=== PATIENT | female | born 1985 | race Two or more races ===

== ENCOUNTER → 2018-03-03 | Outpatient (CLI) | payer SELFPAY ==
--- NOTE | 2018-03-03 15:13 | RADIOLOGY REPORT (SQ) ---
EXAM DESCRIPTION: U/S [id number] TRNABD 1GES W/ODOP COMPLETED DATE/TIME: 03/03/2018 1:33 pm REASON FOR STUDY: ENCOUNTER FOR SUPERVISION OF OTHER NORMAL , FIRST TRIMESTER Z34.81 ENCOU NTER FOR SUPRVSN OF NORMAL , FIRST TRIM COMPARISON: None. TECHNIQUE: Transabdominal static and realtime grayscale images acquired of the pelvis. Additional se lected spectral and color Doppler images recorded. All images stored on PACs. bHCG: Not available. CLINICAL DATES: Not Available. LIMITATIONS: None. FINDINGS: FETUS: ULTRASOUND EGA: 11 week. ULTRASOUND GHULAM: 09/22/2018. CRL: 4.07 cm. EFW: Not applicable. FHR: 168 beats per minute. MADALYN: Adequate amount. CERVICAL LENGTH: 3.2 cm. Closed. UTERUS: No masses. RIGHT ADNEXA: Normal ovary with normal vascular flow. No adnexal free fluid. No adnexal masses. LEFT ADNEXA: Normal ovary with normal vascular flow. No adnexal free fluid. No adnexal masses. FREE FLUID: None. OTHER: No other significant finding. IMPRESSION: LIVING INTRAUTERINE . ESTIMATED GESTATIONAL AGE:11 WEEK. Trimester of : First trimester - 0 to 13 weeks. TECHNICAL DOCUMENTATION: JOB ID: [id number] [employer]- All Rights Reserved rev-12/30 Reading location - IP/workstation name: [email or web address]
== END ==
LOC: RAD 13:00
PROVIDERS: ATTEND Nurse Practitioner Women's Health
DX: Z34.81 Encounter for supervision of other normal pregnancy, first trimester (principal)
CPT/HCPCS: 76801

== ENCOUNTER → 2018-05-15 | Outpatient (CLI) | payer SELFPAY ==
--- NOTE | 2018-05-15 16:22 | RADIOLOGY REPORT (SQ) ---
EXAM DESCRIPTION: U/S OB 14+ TRNABD 1GES W/O DOP COMPLETED DATE/TIME: 05/15/2018 2:45 pm REASON FOR STUDY: Z34.82 ENCOUNTER FOR SUPRVSN OF NORMAL , SECOND TRIMESTER Z34.82 ENCOUNT ER FOR SUPRVSN OF NORMAL , SECOND TRI COMPARISON: 03/03/2018 TECHNIQUE: Static and Dynamic grayscale imaging performed of gravid uterus using transabdominal appr oach. Additional selected color Doppler and spectral images recorded. All stored on PACS. LIMITATIONS: None. FINDINGS: FETUSES SEEN:1 EGA: 21 weeks 5 days Calculated using BPD,FL,HC,AC documented on images. No discrepancy with clinica l dates. GHULAM: 09/20/2017 EFW: 448 grams PERCENTILE: Not calculated. MADALYN: 4.1 PLACENTA: Posterior. GRADE: I PRESENTATION: Cephalic. ANATOMY: HEART RATE: 152 beats per minute. FOUR CHAMBER HEART: Visualized. THREE VESSEL CORD: Yes. CORD INSERTION: Visualized. KIDNEYS AND BLADDER: Visualized. Appear normal. STOMACH: Visualized. Appears normal. SPINE: Normal as visualized. BRAIN AND LATERAL VENTRICLES: Visualized. Appear normal. OTHER: No other significant finding. MATERNAL ADNEXA: Maternal ovaries not visualized. CERVICAL LENGTH: 4.2 cm Closed. OTHER: No other significant finding. IMPRESSION: LIVING INTRAUTERINE . ESTIMATED GESTATIONAL AGE 21 weeks 5 days NO VISUALIZED ANOMALIES. Trimester of : Second trimester - 13 weeks 1 day to 27 weeks 6 days. TECHNICAL DOCUMENTATION: JOB ID: [id number] [employer]- All Rights Reserved Reading location - IP/workstation name: [email or web address]
== END ==
LOC: RAD 16:37
PROVIDERS: ATTEND Nurse Practitioner
DX: Z34.82 Encounter for supervision of other normal pregnancy, second trimester (principal)
CPT/HCPCS: 76805

== ENCOUNTER 2018-09-07 17:27 | Outpatient (CLI) | payer SELFPAY ==
--- NOTE | 2018-09-07 18:42 | RADIOLOGY REPORT (SQ) ---
EXAM DESCRIPTION: U/S OB LIMITED COMPLETED DATE/TIME: 09/07/2018 6:30 pm REASON FOR STUDY: MADALYN non reactive NST gestation of 38 weeks 1 day COMPARISON: 05/15/2018 TECHNIQUE: Limited transabdominal grayscale ultrasound for evaluation of specific requested obstetri daisy parameters. LIMITATIONS: None. FINDINGS: CERVICAL LENGTH: Not applicable. Greater than 20 weeks. Need transvaginal study if indicat ed. Closed. MADALYN: 14.7 cm. FHR: 144 beats per minute. PRESENTATION: Cephalic. PLACENTA: Posterior. ANATOMY: Not assessed OTHER: No other significant findings. IMPRESSION: LIMITED OBSTETRICAL ULTRASOUND WITH MEASURED PARAMETERS DELINEATED ABOVE. Trimester of : Third trimester - 28 weeks to delivery. TECHNICAL DOCUMENTATION: JOB ID: [id number] [employer]- All Rights Reserved Reading location - IP/workstation name: [email or web address]
--- NOTE | 2018-09-07 18:57 | Non Stress Test Report ---
Non Stress Test Datetime Report Generated by CPN: 09/07/2018 18:57 INDICATION Indication for Study: Other Indication for Study (NST) Other: ordered by provider VITAL SIGNS Temperature - NST: 98.6 RESP - NST: 18 MONITORING Monitor Explained: Monitor Explained; Test Explained; Patient Verbalized Understanding Time on Monitor: 09/07/2018 18:28 Time off Monitor: 09/07/2018 18:49 NST Duration: 21 NST INTERVENTIONS NST Interventions: None Physician Notified NST: Dr Ramirez BABY A: [id number] BABY A Movement : Present Contraction Frequency : irritability FHR Baseline : 130 Accelerations : 15X15 Decelerations : None Variability : Moderate 6-25bpm NST Review: Meets Criteria for Reactive NST NST Review and Verified By : Yakelin Tineo RN NST Results: Reactive NST REPORT Report Trigger: Send Report
== END 2018-09-07 19:10 | disposition home or self-care (01) ==
LOC: LC 17:27
PROVIDERS: ATTEND Obstetrics & Gynecology Gynecology
PROC: 4A1HXCZ Monitoring of Products of Conception, Cardiac Rate, External Approach (ICD-10-PCS; principal; 2018-09-07)
DX: Z34.93 Encounter for supervision of normal pregnancy, unspecified, third trimester (principal)
CPT/HCPCS: 59025; 76815

== ENCOUNTER 2018-09-19 02:35 | Inpatient (IN) | payer SELFPAY ==
[2018-09-19 03:13] LABS: APPEARANCE,URINE CLOUDY; BILIRUBIN,URINE NEGATIVE (NEGATIVE); GLUCOSE, URINE NEGATIVE (NEGATIVE); KETONES,URINE NEGATIVE (NEGATIVE); LEUKOCYTE ESTERASE,URINE TRACE (NEGATIVE); NITRITE,URINE NEGATIVE (NEGATIVE); PROTEIN,URINE NEGATIVE (NEGATIVE); URINE SPECIFIC GRAVITY 1.019
[2018-09-19 03:17] LABS: COLOR,URINE DARK YELLOW
[2018-09-19 03:33] LABS: URINE AMPHETAMINES SCREEN NEGATIVE; URINE BARBITURATES SCREEN NEGATIVE; URINE BENZODIAZEPINES SCREEN NEGATIVE; URINE COCAINE SCREEN NEGATIVE; URINE MARIJUANA (THC) SCREEN NEGATIVE; URINE METHADONE SCREEN NEGATIVE; URINE PHENCYCLIDINE SCREEN NEGATIVE
[2018-09-19] MEDS ORDERED: MISOPROSTOL 0.2 MG TABLET ONE (03:37)
[2018-09-19] MEDS ORDERED: OXYTOCIN/NORMAL SALINE 20 UNIT/1,000 ML RTUINJ ONE (03:37)
[2018-09-19] MEDS ORDERED: OXYTOCIN 10 UNIT/ML VIAL ONE (03:37)
[2018-09-19] MEDS ORDERED: LIDOCAINE 1% INJ-PF (10 MG/ML) 30 ML SDV ONE (03:37)
[2018-09-19] MEDS ORDERED: RINGERS SOLUTION,LACTATED 1,000 ML IV PRN (03:52)
[2018-09-19] MEDS ORDERED: RINGERS SOLUTION,LACTATED 1,000 ML IV ONE (03:52)
[2018-09-19 04:15] LABS: ABSOLUTE EOSINOPHILS # (AUTO) 0.1 10^3/uL (0.0-0.6); ABSOLUTE LYMPHOCYTES (AUTO) 2.2 10^3/uL (0.5-4.7); ABSOLUTE MONOCYTES (AUTO) 0.6 10^3/uL (0.1-1.4); ABSOLUTE NEUT (AUTO) 4.8 10^3/uL (1.7-8.2); BASOPHILS % (AUTO) 0.3 % (0-2); EOSINOPHILS % (AUTO) 0.9 % (0-6); HEMATOCRIT 34.8 % (36.0-47.0); LYMPHOCYTES % (AUTO) 28.9 % (13-45); MEAN CORPUSCULAR HEMOGLOBIN 30.7 pg (27.0-33.4); MEAN CORPUSCULAR HGB CONC 34.6 g/dL (32.0-36.0); MEAN CORPUSCULAR VOLUME 89 fl (80-97); MONOCYTES % (AUTO) 7.5 % (3-13); PLATELET COUNT 264 10^3/uL (150-450); RED BLOOD COUNT 3.92 10^6/uL (3.72-5.28); RED CELL DISTRIBUTION WIDTH 14.2 % (11.5-14.0); SEGMENTED NEUTROPHILS % (AUTO) 62.4 % (42-78); TOTAL CELLS COUNTED % (AUTO) 100 %; WHITE BLOOD COUNT 7.8 10^3/uL (4.0-10.5)
--- NOTE | 2018-09-19 06:34 | Admission Physical ---
Datetime Report Generated by CPN: 09/19/2018 06:33 CURRENT ADMISSION Chief Complaint: Uterine Contractions Indication for Induction: Not Applicable Admit Impression : Term, Intrauterine ; Active Labor Admit Plan: Admit to Unit ALLERGIES Medication Allergies: No Medication Allergies: No Known Allergies (09/19/2018) Latex: No Latex Allergies Food Allergies: No known allergies Environmental Allergies: No known allergies OBSTETRICAL HISTORY EDC: 09/20/2018 00:00 : 3 Para: 2 Term: 2 : 0 SAB: 0 IAB: 0 Ectopic: 0 Livin Cesareans: 0 VBACs: 0 Multiple Births: 0 Gestational Diabetes: No Rh Sensitization: No Incompetent Cervix: No WALDO: No Infertility: No ART Treatment: No Uterine Anomaly: No IUGR: No Hx Previous C/S: No Macrosomia: No Hx Loss/Stillborn: No PIH: No Hx : No Placenta Previa/Abruption: No Depression/PP Depression: No PTL/PROM: No Post Hemorrhage: No Current Procedures: Ultrasound; NST Obstetrical History Comments: G1 - 2006 @ 40 weeks, viable baby boy G2 - 2008 @ 40 weeks, viable baby girl G3 - Current SEE RECORDS Alcohol: No Marijuana : No Cocaine: No Other Illicit Drugs: No Cigarettes: Never Smoker. [id number] MEDICAL HISTORY Diabetes: No Blood Transfusion: No Pulmonary Disease (Asthma, TB): No Breast Disease: No Hypertension: No [employer] Surgery: No Heart Disease: No Hosp/Surgery: Yes Autoimmune Disorder: No Anesthetic Complications: No Kidney Disease: No Abnormal Pap Smear: No Neuro/Epilepsy: No Psychiatric Disorders: No Other Medical Diseases: No Hepatitis/Liver Disease: No Significant Family History: No Varicosities/Phlebitis: No Trauma/Violence : No Thyroid Dysfunction: No Medical History Comments: childbirth x 2 INFECTIOUS HISTORY Gonorrhea: No Genital Herpes: No Chlamydia: No Tuberculosis: No Syphilis: No Hepatitis: No HIV/AIDS Exposure: No Rash or Viral Illness: No HPV: No PHYSICAL EXAM General: Normal HEENT: Normal Neurologic: Normal Thyroid: Normal Heart: Normal Lungs: Normal Breast: Normal Back: Normal Abdomen: Normal Genitourinary Exam: Normal Extremities: Normal DTRs: Normal Pelvic Type: Adequate Vital Signs: Reviewed VAGINAL EXAM Dilatation: 8 Effacement: 90 Station: -1 MEMBRANES Pooling: Positive Membranes: Ruptured Amniotic Fluid Color: Bloody FETUS A EGA: 39.6 Monitoring: External US FHR- Baseline: 130 Variability: Moderate 6-25bpm Accelerations: 15X15 Decelerations: None FHR Category: Category I Estimated Weight (gm): 3500 Presentation: Vertex PLANS FOR LABOR AND DELIVERY Labor and Delivery: None Pain Management: Medications Feeding Preference: Breast Benefit of Breast Feed Discussed: Yes Circumcision: N/A INFORMED CONSENT Signature: with User ID: [email or web address]
[2018-09-19] MEDS ORDERED: MAGNESIUM HYDROXIDE SUSP 30 ML UDCUP PO PRN (07:14)
[2018-09-19] MEDS ORDERED: DIPH/PERTUSS(ACELL)/TETANUS VAC/PF 0.5 ML SYR (>=10YO) IM PRN (07:14)
[2018-09-19] MEDS ORDERED: MEASLES,MUMPS&RUBELLA VACC/PF 0.5 ML VIAL SUBCUT PRN (07:14)
[2018-09-19] MEDS ORDERED: DIPHENHYDRAMINE HCL 25 MG CAPSULE PO PRN (07:14)
[2018-09-19] MEDS ORDERED: ACETAMINOPHEN WITH CODEINE #3 TABLET PO PRN ×2 (07:14)
[2018-09-19] MEDS ORDERED: PROMETHAZINE HCL 25 MG TABLET PO PRN (07:14)
[2018-09-19] MEDS ORDERED: PROMETHAZINE HCL 25 MG SUPP.RECT PR PRN (07:14)
[2018-09-19] MEDS ORDERED: OXYTOCIN/NORMAL SALINE 20 UNIT/1,000 ML RTUINJ IV PRN (07:14)
[2018-09-19] MEDS ORDERED: ACETAMINOPHEN 650 MG SUPP.RECT PR PRN (07:14)
[2018-09-19] MEDS ORDERED: NA PHOS,M-B/NA PHOS,DI-BA (ADULT) 133 ML ENEMA PR PRN (07:14)
[2018-09-19] MEDS ORDERED: ZOLPIDEM TARTRATE 5 MG TABLET PO PRN (07:14)
[2018-09-19] MEDS ORDERED: DIBUCAINE 1% OINTMENT 28 GM TP PRN (07:14)
[2018-09-19] MEDS ORDERED: BENZOCAINE/MENTHOL AEROSOL SPRAY 56 ML TOP PRN (07:14)
[2018-09-19] MEDS ORDERED: GLYCERIN/WITCH HAZEL LEAF 1 EACH MED..PAD TP PRN (07:14)
[2018-09-19] MEDS ORDERED: PSEUDOEPHEDRINE HCL 30 MG TABLET PO PRN (07:14)
[2018-09-19] MEDS ORDERED: PROMETHAZINE HCL INJ 25 MG/1 ML VIAL IV PRN (07:14)
[2018-09-19] MEDS: SENNOSIDES/DOCUSATE 8.6-50 MG 1 EACH TABLET PO SCH (10:49)
[2018-09-19] MEDS: FERROUS SULFATE 325 MG TABLET PO SCH ×2 (10:49→17:22)
[2018-09-19] MEDS: FAMOTIDINE 20 MG TABLET PO SCH ×2 (10:49→21:04)
[2018-09-19] MEDS: PRENATAL VITAMIN W DHA CAPSULE PO SCH (10:49)
[2018-09-19] MEDS: DOCUSATE SODIUM 100 MG CAPSULE PO SCH ×2 (10:49→17:22)
[2018-09-19] MEDS: IBUPROFEN 800 MG TABLET PO SCH ×2 (13:22→21:04)
[2018-09-20] MEDS: IBUPROFEN 800 MG TABLET PO SCH ×3 (06:41→21:31)
[2018-09-20 07:29] LABS: HEMATOCRIT 34.8 % (36.0-47.0); HEMOGLOBIN 11.9 g/dL (12.0-15.5); MEAN CORPUSCULAR HEMOGLOBIN 30.8 pg (27.0-33.4); MEAN CORPUSCULAR HGB CONC 34.3 g/dL (32.0-36.0); MEAN CORPUSCULAR VOLUME 90 fl (80-97); PLATELET COUNT 264 10^3/uL (150-450); RED BLOOD COUNT 3.88 10^6/uL (3.72-5.28); RED CELL DISTRIBUTION WIDTH 14.3 % (11.5-14.0); WHITE BLOOD COUNT 8.6 10^3/uL (4.0-10.5)
--- NOTE | 2018-09-20 08:19 | Delivery Summary ---
Del Sum A-C Datetime Report Generated by CPN: 09/20/2018 08:19 DELIVERY PERSONNEL DELIVERY PERSONNEL: [id number] Delivery Doctor:: Rosy Nova MD Labor and Delivery Nurse:: Anne Jason RN Nursery Nurse:: Melinda Oliverhemant, [employer] Recruitment Internship/PHYSICIAN IN PRIVATE PRACTICE: Live Ert[employer], PHYSICIAN IN PRIVATE PRACTICE MATERNAL INFORMATION Delivery Anesthesia: None Medications After Delivery: Pitocin Drip 20 Units/1000ml NSS Estimated Blood Loss (ml): 200 Maternal Complications: None LABOR SUMMARY EDC: 09/20/2018 00:00 No. Babies in Womb: 1 Attempted: No Labor Anesthesia: Intrathecal LABOR INFORMATION Onset of Labor: 09/19/2018 05:08 Complete Dilatation: 09/19/2018 06:37 Oxytocin: N/A Group B Beta Strep: Negative Antibiotics # of Doses: 0 Steroids Given: None Reason Steroids Not Administered: Not Applicable MEMBRANES Membranes Rupture Method: Spontaneous Rupture of Membranes: 09/19/2018 06:27 Length of Rupture (hr): 0.47 Amniotic Fluid Color: Bloody Amniotic Fluid Amount: None Amniotic Fluid Odor: Foul STAGES OF LABOR Stage 1 hr: 1 Stage 1 min: 29 Stage 2 hr: 0 Stage 2 min: 18 Stage 3 hr: 0 Stage 3 min: 1 Total Time in Labor hr: 1 Total Time in Labor min: 48 VAGINAL DELIVERY Episiotomy: None Laceration #1: None Laceration Extension #1: N/A Laceration Repair: Not Applicable Initial Vag Sponge Count: 0 Final Vag Sponge Count: 0 Initial Vag Sharps Count: 0 Final Vag Sharps Count: 0 Sponge Count Correct: N/A CSECTION DELIVERY Primary Indication: N/A Secondary Indication: N/A CSection Incidence: N/A Labor: N/A Elective: N/A CSection Incision: N/A BABY A INFORMATION Infant Delivery Date/Time: 09/19/2018 06:55 Method of Delivery: Vaginal Born in Route : No : N/A Forceps: N/A Vacuum Extraction: N/A Shoulder Dystocia : No PRESENTATION/POSITION BABY A Presentation: Cephalic Cephalic Presentation: Vertex Vertex Position: Right Occipital Anterior Breech Presentation: N/A PLACENTA INFORMATION BABY A Placenta Delivery Time : 09/19/2018 06:56 Placenta Method of Delivery: Spontaneous Placenta Status: Delivered SCORES BABY A Heart Rate 1 min: >100 bpm Resp Effort 1 min: Slow, Irregular Reflex Irritability 1 min: Cough or Sneeze or Pulls Away Muscle Tone 1 min: Some Flexion of Extremities Color 1 min: Body [place], Extremities Blue Resuscitation Effort 1 min: N/A SCORE 1 MIN: 7 Heart Rate 5 min: >100 bpm Resp Effort 5 min: Good Cry Reflex Irritability 5 min: Cough or Sneeze or Pulls Away Muscle Tone 5 min: Some Flexion of Extremities Color 5 min: Body [place], Extremities Blue SCORE 5 MIN: 8 INFANT INFORMATION BABY A Gestational Age at Delivery: 39.6 Gestational Status: Full Term- 39- 40.6 Weeks Infant Outcome : Liveborn Condition : Stable Sex: Female IDENTIFICATION BABY A Verification Date/Time: 09/19/2018 08:03 ID Band Number: [id number] Mother's Name Verified: Yes Infant RN Verifying : Yakelin Tineo/Ciaran WEIGHT/LENGTH BABY A Infant Birthweight (gm): 3766 Weight (lb): 8 Weight (oz): 5 Length (in): 19.75 Length (cm): 50.17 CORD INFORMATION BABY A No. Cord Vessels: 3 Nuchal Cord : Around Neck x1, Loose Cord Blood Taken: Yes-For Eval (Mom's Blood Type - or O+) Suction: Mouth; Nose ASSESSMENT BABY A Skin to Skin: Yes BABY B INFORMATION : N/A SIGNATURES Signature: with User ID: [email or web address]
[2018-09-20] MEDS: PRENATAL VITAMIN W DHA CAPSULE PO SCH (09:55)
[2018-09-20] MEDS: FAMOTIDINE 20 MG TABLET PO SCH ×2 (09:55→21:31)
[2018-09-20] MEDS: DOCUSATE SODIUM 100 MG CAPSULE PO SCH ×2 (09:55→17:31)
[2018-09-20] MEDS: FERROUS SULFATE 325 MG TABLET PO SCH ×2 (09:55→17:31)
[2018-09-20] MEDS: SENNOSIDES/DOCUSATE 8.6-50 MG 1 EACH TABLET PO SCH (09:55)
--- NOTE | 2018-09-20 10:12 | PDOC PROGRESS REPORT ---
Subjective-OB Progress Note for:: 09/20/18 Subjective: 33yo G3 now P3 s/p ppd1. Pt ambulating and voiding without difficulty, reports pain well controlled with medication, no concerns at this time Physical Exam (OB) Vital Signs: Temp Pulse Resp BP Pulse Ox 98.4 F 78 16 102/70 98 09/20/18 08:39 09/20/18 08:39 09/20/18 08:39 09/20/18 08:39 09/20/18 08:39 Intake & Output 09/19/18 09/20/18 09/21/18 06:59 06:59 06:59 Weight 83.5 kg - General General Appearance: Appears well In distress: None - PIH/Pre-Eclampsia Clonus: Negative Headache: Absent Epigastric Pain: No Visual Changes: No - Episiotomy/Laceration Site Condition: N/A - Lochia Lochia Amount: Scant < 10 ml Lochia Color: Serosa/Brown - Abdomen Description: Soft Hernia Present: No Fundal Description: Firm Fundal Height: u/u - u/2 - Respiratory Respiratory Status: No respiratory distress - Extremities Upper extremity: Normal inspection Lower extremities: Normal inspection - Neurological Cognition: Normal Orientation: AAOx4 - Psychological Associated symptoms: Normal affect, Normal mood Objective-Diagnostic Laboratory: 09/20/18 07:07 09/20/18 07:07 WBC 8.6 RBC 3.88 Hgb 11.9 L Hct 34.8 L MCV 90 MCH 30.8 MCHC 34.3 RDW 14.3 H Plt Count 264 Assessment and Plan(PN) - Assessment and Plan (1) Vaginal delivery Is this a current diagnosis for this admission?: Yes Plan: Routine pp care, monitor for s/s of infection. - Time Spent with Patient Time with patient: Less than 15 minutes Medications reviewed and adjusted accordingly: Yes - Disposition Anticipated Discharge: Home Within: within 24 hours
[2018-09-21] MEDS: IBUPROFEN 800 MG TABLET PO SCH (05:30)
[2018-09-21 08:37] VITALS: BP 99/57
[2018-09-21] MEDS: FERROUS SULFATE 325 MG TABLET PO SCH (09:58)
[2018-09-21] MEDS: FAMOTIDINE 20 MG TABLET PO SCH (09:58)
[2018-09-21] MEDS: PRENATAL VITAMIN W DHA CAPSULE PO SCH (09:58)
[2018-09-21] MEDS: SENNOSIDES/DOCUSATE 8.6-50 MG 1 EACH TABLET PO SCH (09:58)
[2018-09-21] MEDS: DOCUSATE SODIUM 100 MG CAPSULE PO SCH (09:58)
--- NOTE | 2018-09-21 10:38 | PDOC PROGRESS REPORT ---
Subjective-OB Progress Note for:: 09/21/18 Subjective: Doing well, no c/o, encouraged to wear bra and continue PNV's, voiding, Physical Exam (OB) Vital Signs: Temp Pulse Resp BP Pulse Ox 98.2 F 64 16 99/57 L 97 09/21/18 07:36 09/21/18 07:36 09/21/18 07:36 09/21/18 07:36 09/21/18 07:36 Intake & Output 09/20/18 09/21/18 09/22/18 06:59 06:59 06:59 Intake Total 200 Balance 200 - PIH/Pre-Eclampsia DTR's: 2 + Clonus: Negative Headache: Absent Epigastric Pain: No Visual Changes: No - Lochia Lochia Amount: Small 10-25 ml Lochia Color: Rubra/Red - Abdomen Description: Soft Hernia Present: No Fundal Description: Firm Fundal Height: u/u - u/2 Objective-Diagnostic Laboratory: 09/20/18 07:07 Assessment and Plan(PN) - Assessment and Plan (1) Elevated AFP Is this a current diagnosis for this admission?: Yes (2) Vaginal delivery Is this a current diagnosis for this admission?: Yes - Time Spent with Patient Time with patient: Less than 15 minutes Medications reviewed and adjusted accordingly: Yes - Disposition Anticipated Discharge: Home Within: within 24 hours
--- NOTE | 2018-09-21 10:42 | PDOC DISCHARGE SUMMARY ---
Final Diagnosis Discharge Date: 09/21/18 - Final Diagnosis (1) Elevated AFP Is this a current diagnosis for this admission?: Yes (2) Vaginal delivery Is this a current diagnosis for this admission?: Yes Discharge Data - Discharge Medication Home Medications: No122/Iron/Folic Acid [ Multi Tablet] 1 tab PO DAILY 09/07/18 - [place] Data Baby 1 Female at 1 minute: 7 at 5 minutes: 8 Home with Mother: Yes Complications: No - Diagnosis Test Laboratory: Temp Pulse Resp BP Pulse Ox 98.2 F 64 16 99/57 L 97 09/21/18 07:36 09/21/18 07:36 09/21/18 07:36 09/21/18 07:36 09/21/18 07:36 09/19/18 09/19/18 09/20/18 02:55 03:56 07:07 RBC 3.92 3.88 Hgb 12.0 11.9 L Hct 34.8 L 34.8 L Urine Opiates Screen NEGATIVE - Discharge information/Instructions Discharge Activity: Activity As Tolerated, No Lifting Over 10 Pounds, Pelvic Rest Discharge Diet: As Tolerated, Regular Disposition: HOME, SELF-CARE Follow up with: [facility] in: 4, Weeks
== END 2018-09-21 13:06 | disposition home or self-care (01) | DRG 807 ==
LOC: LC 02:35 → LR 03:36 → 2S 09:34
PROVIDERS: ADMIT Obstetrics & Gynecology; ATTEND Obstetrics & Gynecology
PROC: 10E0XZZ Delivery of Products of Conception, External Approach (ICD-10-PCS; principal; 2018-09-19)
PROC: 4A1HX4Z Monitoring of Products of Conception, Cardiac Electrical Activity, External Approach (ICD-10-PCS; 2018-09-19)
DX: O69.81X0 Labor and delivery complicated by cord around neck, without compression, not applicable or unspecified (principal); Z37.0 Single live birth; Z3A.39 39 weeks gestation of pregnancy; R77.2 Abnormality of alphafetoprotein
CPT/HCPCS: 36415; 80307; 81005; 85025; 85027; 86592; 86850; 86900; 86901; J2590; J3490

== ENCOUNTER 2019-07-14 12:05 | Emergency (ER) | payer OTHER ==
--- NOTE | 2019-07-14 12:16 | ER Document Report ---
ED Medical Screen (RME) - General Chief Complaint: Toe Injury Stated Complaint: TOE INJURY Time Seen by Provider: 07/14/19 12:13 Mode of Arrival: Ambulatory Information source: Patient Notes: Patient is a 34-year-old female presents emergency department chief complaint of right toe injury. Patient reports she excellently kicked something with her right toe on her toenail is damaged. She reports pain in her toe and up into her foot. Her tetanus is not up-to-date. I have greeted and performed a rapid initial assessment of this patient. A comprehensive ED assessment and evaluation of the patient, analysis of test results and completion of the medical decision making process will be conducted by additional ED providers. I have specifically instructed the patient or family members with the patient to immediately return to any nursing staff should anything change in the patient's condition or with their chief complaint. This medical record was dictated with voice recognizing software. There may be grammatical, syntax errors that are unintended. TRAVEL OUTSIDE OF THE [place] IN LAST 30 DAYS: No - Related Data Allergies/Adverse Reactions: No Known Allergies Allergy (Verified 07/14/19 12:13) Past Medical History Renal/ Medical History: Denies: Hx Peritoneal Dialysis - Immunizations Hx Diphtheria, Pertussis, Tetanus Vaccination: No
--- NOTE | 2019-07-14 12:56 | RADIOLOGY REPORT (SQ) ---
EXAM DESCRIPTION: TOE RIGHT COMPLETED DATE/TIME: 07/14/2019 12:40 pm REASON FOR STUDY: right great toe pain s/p injury COMPARISON: None. NUMBER OF VIEWS: Three views. TECHNIQUE: AP, lateral, and oblique images acquired of the right first toe. LIMITATIONS: None. FINDINGS: MINERALIZATION: Normal. BONES: No acute fracture or dislocation. No worrisome bone lesions. JOINTS: No effusions. SOFT TISSUES: No soft tissue swelling. No foreign body. OTHER: Avulsion injury of the toenail. No other significant finding. IMPRESSION: AVULSION INJURY OF THE TOENAIL. NO SIGNIFICANT BONY OR SOFT TISSUE FINDINGS. COMMENT: SITE OF TRAUMA/COMPLAINT MARKED/STAMP COMPLETED: YES. TECHNICAL DOCUMENTATION: JOB ID: [id number] [employer]- All Rights Reserved Reading location - IP/workstation name: [email or web address]
--- NOTE | 2019-07-14 14:03 | ER Document Report ---
HPI - HPI Time Seen by Provider: 07/14/19 12:13 Pain Level: 3 Notes: Patient is a 34-year-old female no significant past medical history presents complaining of right great toe pain status post stubbing her toe and causing the nail to lift up prior to arrival. She is not on blood thinners. Denies drug allergies. No other concerns or complaints. Pain does not radiate. She still able to ambulate and weight-bear. Denies any headache, fever, URI, sore throat, chest pain, palpitations, syncope, cough, shortness of breath, wheeze, dyspnea, abdominal pain, nausea/vomiting/diarrhea, urinary retention, dysuria, hematuria, or rash. - ROS Systems Reviewed and Negative: Yes All other systems reviewed and negative - CONSTITUTIONAL Constitutional: DENIES: Fever, Chills - REPRODUCTIVE Reproductive: DENIES: : - DERM Skin Color: [place] Past Medical History - General Information source: Patient - Social History Smoking Status: Never Smoker Chew tobacco use (# tins/day): No Drug Abuse: None Family History: Reviewed & Not Pertinent Patient has suicidal ideation: No Patient has homicidal ideation: No Renal/ Medical History: Denies: Hx Peritoneal Dialysis - Immunizations Hx Diphtheria, Pertussis, Tetanus Vaccination: No Vertical Provider Document - CONSTITUTIONAL Agree With Documented VS: Yes Notes: PHYSICAL EXAMINATION: GENERAL: Well-appearing, well-nourished and in no acute distress. LUNGS: Breath sounds clear to auscultation bilaterally and equal. No wheezes rales or rhonchi. HEART: Regular rate and rhythm without murmurs, rubs, gallops. Musculoskeletal: Rt foot: The great toe nail is lifted up but still under the nail fold and attached at the base. No ecchymosis swelling or deformity. FROM to passive/active. Strength 5+/5. N/V intact distal. + tenderness to the distal great toe. No other bony tenderness of the ankle/foot. Achilles intact. Lis Franc maneuver neg. Anterior drawer neg. Extremities: No cyanosis, clubbing, or edema b/l. Peripheral pulses 2+. Capillary refill less than 3 seconds. NEUROLOGICAL: Normal speech, limping gait. Normal sensory, motor exams PSYCH: Normal mood, normal affect. SKIN: see above - INFECTION CONTROL TRAVEL OUTSIDE OF THE [place] IN LAST 30 DAYS: No Course - Re-evaluation Re-evalutation: 07/14/19 Patient is an afebrile, well-hydrated, 34-year-old female who presents to the ED with Rt toe nail avulsion injury. Vitals are acceptable without any significant tachycardia, tachypnea, or hypoxia. PE is otherwise unremarkable for any neurovascular compromise, obvious tendon/ligament rupture, obvious fracture/dislocation, septic joint. X-ray was unremarkable for any acute pathology. Patient is nontoxic-appearing. Patient is able to ambulate and weight-bear although she is limping. No other labs or imaging warranted at this time based on H&P. Area was thoroughly irrigated and cleansed. I was able to replace the nail and use glue and Steri-Strips to pin it back in place as it was just lifted. Pt tolerated procedure well w/o complication. Patient is aware that she could have issues with toenail growth. Conservative measures otherwise for symptoms. Recheck with your PCM in 3-5 days. Consider consult orthopedics. Return to the ED with any worsening/concerning symptoms otherwise as reviewed in discharge. Patient is in agreement. - Vital Signs Vital signs: Temp Pulse Resp BP Pulse Ox 98 F 82 16 158/68 H 100 07/14/19 12:15 07/14/19 12:15 07/14/19 12:15 07/14/19 12:15 07/14/19 12:15 Procedures - Laceration/Wound Repair Right Great toe Wound length (cm): 1 Wound's Depth, Shape: Nail-avulsed Laceration pre-procedure: Sterile PPE donned, Sterile drapes applied, Other - Chlorhexidine/saline Anesthetic type: 1% Lidocaine Volume Anesthetic (mLs): 5 - Digital block Wound explored: Clean, No foreign body removed Irrigated w/ Saline (mLs): 200 Wound Debrided: Minimal Wound Repaired With: Steri-strips, Dermabond Post-procedure wound care: Sterile dressing applied Post-procedure NV exam normal: Yes Complications: No Discharge - Discharge Clinical Impression: Toe pain, right Condition: Stable Disposition: HOME, SELF-CARE Additional Instructions: Rest, Ice, Compression, Elevation Keep the skin clean and use soap and water Tylenol/ibuprofen as needed F/u with your PCP in 3-5 days for a recheck Consider consult(s) with Orthopedics/physical therapy for ongoing/worsening symptoms Return to the ED with any worsening symptoms and/or development of fever, headache, chest pain, palpitations, syncope, shortness of breath, trouble breathing, abdominal pain, n/v/d, muscle weakness/paralysis, numbness/tingling, swelling, redness, or other worsening symptoms that are concerning to you. Prescriptions: Cephalexin Monohydrate [Keflex 500 mg Capsule] 500 mg PO BID #14 capsule Forms: Elevated Blood Pressure Referrals: BRINA GUILLEN DPM [ACTIVE STAFF] - Follow up as needed [facility] [Provider Group] - Follow up as needed
[2019-07-14 15:12] VITALS: BP 117/77
== END 2019-07-14 15:30 | disposition home or self-care (01) ==
LOC: ER 12:05
DX: S91.201A Unspecified open wound of right great toe with damage to nail, initial encounter (principal); M79.674 Pain in right toe(s); X58.XXXA Exposure to other specified factors, initial encounter
CPT/HCPCS: 99283

== ENCOUNTER 2020-03-11 06:25 | Emergency (ER) | payer SELFPAY ==
[2020-03-11 08:03] LABS: APPEARANCE,URINE SLIGHTLY-CLOUDY; BILIRUBIN,URINE NEGATIVE (NEGATIVE); COLOR,URINE YELLOW; GLUCOSE, URINE NEGATIVE (NEGATIVE); KETONES,URINE NEGATIVE (NEGATIVE); LEUKOCYTE ESTERASE,URINE MODERATE (NEGATIVE); NITRITE,URINE NEGATIVE (NEGATIVE); PROTEIN,URINE 30 mg/dL (NEGATIVE); UROBILINOGEN,URINE NEGATIVE mg/dL (<2.0)
[2020-03-11] MEDS ORDERED: CEPHALEXIN 500 MG CAPSULE PO ONE (08:47)
[2020-03-11] MEDS ORDERED: PHENAZOPYRIDINE HCL 200 MG TABLET PO ONE (08:47)
[2020-03-11 09:24] VITALS: BP 115/75
--- NOTE | 2020-03-11 14:24 | ER Document Report ---
Entered by VIN COOK SCRIBE 03/11/20 0846 Acting as scribe for:SHENA ELAINE MD ED GI/ - General Chief Complaint: Trouble Voiding Stated Complaint: PAIN WHILE URINATING Time Seen by Provider: 03/11/20 08:32 Mode of Arrival: Ambulatory Information source: Patient Notes: This 35 year old female patient presents to the emergency department today with complaints of burning with urination. Patient is also , with her last menstrual period being in early November. Patient states that she has her first appointment with the health department today at 3pm. TRAVEL OUTSIDE OF THE [place] IN LAST 30 DAYS: No - HPI Patient complains to provider of: Dysuria, Location: Suprapubic Vaginal bleeding (Compared to normal period): None Menstrual period history: - Related Data Allergies/Adverse Reactions: No Known Allergies Allergy (Verified 07/14/19 12:13) Past Medical History - General Information source: Patient - Social History Smoking Status: Never Smoker Cigarette use (# per day): No Chew tobacco use (# tins/day): No Smoking Education Provided: No Frequency of alcohol use: None Drug Abuse: None Lives with: Family Family History: Reviewed & Not Pertinent Patient has homicidal ideation: No - Medical History Medical History: Negative Surgical Hx: Negative - Immunizations Hx Diphtheria, Pertussis, Tetanus Vaccination: No Review of Systems - Review of Systems Constitutional: No symptoms reported EENT: No symptoms reported Cardiovascular: No symptoms reported Respiratory: No symptoms reported Gastrointestinal: No symptoms reported Genitourinary: See HPI, Burning Female Genitourinary: See HPI, Last menstrual period - early november, Musculoskeletal: No symptoms reported Skin: No symptoms reported Hematologic/Lymphatic: No symptoms reported Neurological/Psychological: No symptoms reported -: Yes All other systems reviewed and negative Physical Exam - Vital signs Vitals: Temp Pulse Resp BP Pulse Ox 98.7 F 73 20 115/76 99 03/11/20 06:45 03/11/20 06:45 03/11/20 06:45 03/11/20 06:45 03/11/20 06:45 - Notes Notes: Physical Exam: General: Alert, appears well. HEENT: Normocephalic. Atraumatic. PERRL. Extraocular movements intact. Oropharynx clear. Neck: Supple. Non-tender. Respiratory: No respiratory distress. Clear and equal breath sounds bilaterally. Cardiovascular: Regular rate and rhythm. Abdominal: Gravid female. Mild suprapubic tenderness with palpation. No distension. Normal Bowel Sounds. Back: No gross abnormalities. Extremities: Moves all four extremities. Upper extremities: Normal inspection. Normal ROM. Lower extremities: Normal inspection. No edema. Normal ROM. Neurological: Normal cognition. AAOx4. Normal speech. Psychological: Normal affect. Normal Mood. Skin: Warm. Dry. Normal color. Course - Vital Signs Vital signs: Temp Pulse Resp BP Pulse Ox 98.1 F 69 18 115/75 99 03/11/20 09:23 03/11/20 09:23 03/11/20 09:23 03/11/20 09:23 03/11/20 09:23 - Laboratory Laboratory results interpreted by me: 03/11/20 07:10 Urine Protein 30 H Urine Blood MODERATE H Ur Leukocyte Esterase MODERATE H Urine HCG, Qual POSITIVE H Discharge - Discharge Clinical Impression: Positive test Urinary tract infection Qualifiers: Urinary tract infection type: acute cystitis Hematuria presence: with hematuria Qualified Code(s): N30.01 - Acute cystitis with hematuria Condition: Stable Disposition: HOME, SELF-CARE Additional Instructions: Urinary Tract Infection: Your evaluation indicates that you have a urinary tract infection. This is due to germs growing in the bladder. This is a common problem. This infection usually responds quickly to antibiotics. Your antibiotic should be taken exactly as prescribed. Drink plenty of fluids -- three to four quarts a day. Occasionally, a bladder anesthetic will be prescribed to help stop the feeling of urgency until the antibiotic has a chance to clear the infection. This may cause your urine to be dark orange. Certain urine infections require a culture. If the doctor obtained a culture, the results will be back in two days. You should call to see if a change in treatment is needed. A repeat urinalysis after you finish treatment is often recommended. The physician will let you know if further testing is required. Call the doctor if you develop fever, chills, flank pain, inability to urinate, or blood in the urine. : You are . care is best started as early in as possible. If you're unsure about continuing this , you should discuss this with your physician or with superintendent renting managing at [facility]. You should take only medications approved by your physician. Acetaminophen can safely be taken for minor pains. As a rule, medication for chronic conditions such as asthma or seizures can safely be continued. You should discuss with the physician every medicine you take. Any regular exercise program can be continued. Talk to your physician, however, before engaging in competitive or demanding sports. Alcohol, smoking, and "street drugs" are dangerous to your baby. Cocaine is especially dangerous. Don't use any illicit drugs! Take medications as prescribed. Drink plenty of fluids. Follow-up with the health department today at 3 PM for your scheduled appointment. Tell them that you were started on antibiotics today for urinary tract infection and they can follow you to be sure the infection clears up. RETURN TO THE EMERGENCY ROOM IF ANY NEW OR WORSENING SYMPTOMS. Prescriptions: Cephalexin Monohydrate [Keflex 500 mg Capsule] 500 mg PO QID #20 capsule Phenazopyridine HCl [Pyridium 200 mg Tablet] 200 mg PO TID PRN #5 tablet PRN Reason: I personally performed the services described in the documentation, reviewed and edited the documentation which was dictated to the scribe in my presence, and it accurately records my words and actions.
== END 2020-03-11 09:24 | disposition home or self-care (01) ==
LOC: ER 06:25
DX: N30.01 Acute cystitis with hematuria (principal); Z32.01 Encounter for pregnancy test, result positive
CPT/HCPCS: 99283; 87086; 81025; 87088; 81001; J3490; 87186

== ENCOUNTER → 2020-04-16 | Outpatient (CLI) | payer SELFPAY ==
--- NOTE | 2020-04-16 15:06 | RADIOLOGY REPORT (SQ) ---
EXAM DESCRIPTION: U/S OB 14+ TRNABD 1GES W/O DOP IMAGES COMPLETED DATE/TIME: 04/16/2020 1:36 pm REASON FOR STUDY: (Z34.82)ENCOUNTER FOR SUPRVSN OF NORMAL , SECOND TRIMESTER Z34.[address] FOR SUPRVSN OF NORMAL , SECOND TRI COMPARISON: 03/26/2020 TECHNIQUE: Static and Dynamic grayscale imaging performed of gravid uterus using transabdominal appr oach. Additional selected color Doppler and spectral images recorded. All stored on PACS. LIMITATIONS: None. FINDINGS: FETUSES SEEN:1 EGA: 19 weeks 1 day Calculated using BPD,FL,HC,AC documented on images. No discrepancy with clinical dates. GHULAM: 09/09/2020 EFW: 279 g grams PERCENTILE: Not applicable. Fetus less than or equal to 20 weeks gestation. LVP: 4 x 5.8 cm PLACENTA: Anterior grade 1 PRESENTATION: Variable ANATOMY: HEART RATE: 150 beats per minute. FOUR CHAMBER HEART: Visualized. THREE VESSEL CORD: Yes. CORD INSERTION: Visualized. KIDNEYS AND BLADDER: Visualized. Appear normal. STOMACH: Visualized. Appears normal. SPINE: Normal as visualized. BRAIN AND LATERAL VENTRICLES: Visualized. Appear normal. OTHER: No other significant finding. MATERNAL ADNEXA: Maternal ovaries within normal limits. CERVICAL LENGTH: 2.9 cm Closed. OTHER: No other significant finding. IMPRESSION: LIVING INTRAUTERINE . ESTIMATED GESTATIONAL AGE 19 weeks 1 day NO VISUALIZED ANOMALIES. Trimester of : Second trimester - 13 weeks 1 day to 27 weeks 6 days. TECHNICAL DOCUMENTATION: JOB ID: [id number] 2010 [employer]- All Rights Reserved Reading location - IP/workstation name: [email or web address]
== END ==
LOC: RAD 12:51
PROVIDERS: ATTEND Midwife
DX: Z34.82 Encounter for supervision of other normal pregnancy, second trimester (principal); Z3A.19 19 weeks gestation of pregnancy
CPT/HCPCS: 76805

== ENCOUNTER 2020-08-04 10:43 | Outpatient (CLI) | payer MEDICAID ==
--- NOTE | 2020-08-04 12:32 | RADIOLOGY REPORT (SQ) ---
EXAM DESCRIPTION: U/S PROFILE W/O STRESS IMAGES COMPLETED DATE/TIME: 08/04/2020 12:21 pm REASON FOR STUDY: NON-REACTIVE NST; WEEKLY MADALYN COMPARISON: None. TECHNIQUE: Limited bernabe-scale realtime and static images of the fetus to measure specified parameter s. LIMITATIONS: None. FINDINGS: HEART RATE: 127 beats per minute. MADALYN: 14.6 cm. MVP: 5.7 x 5.3 cm. BREATHING MOVEMENT: 2 points. MOVEMENT: 2 points. POSTURE AND TONE: 2 points. QUALITATIVE MADALYN: 2 points. OTHER: No other significant finding. IMPRESSION: BIOPHYSICAL PROFILE: 03/22. Trimester of : Third - 28 weeks to delivery COMMENT: BREATHING MOVEMENTS: 2 POINTS: PRESENT 0 POINTS: ABSENT MOTION: 2 POINTS: PRESENT 0 POINTS: ABSENT TONE: 2 POINTS: PRESENT 0 POINTS: ABSENT AMNIOTIC FLUID VOLUME: 2 POINTS: LARGEST POCKET GREATER THAN 2 CM DEPTH. 0 POINTS: NO POCKET OF 2 CM. TECHNICAL DOCUMENTATION: JOB ID: [id number] 2010 [employer]- All Rights Reserved Reading location - IP/workstation name: [email or web address]
--- NOTE | 2020-08-04 13:08 | Non Stress Test Report ---
Non Stress Test Datetime Report Generated by CPN: 08/04/2020 13:08 DEMOGRAPHIC Test Number: 1 EGA NST: 36.2 INDICATION Indication for Study (NST) Other: advanced maternal age Indication for Study (NST) Other: advanced maternal age VITAL SIGNS Temperature - NST: 98.4 Temperature - NST: 98.4 Pulse - NST: 79 Pulse - NST: 79 RESP - NST: 16 RESP - NST: 16 NBPSYS NST: 101 NBPSYS NST: 101 NBPDIA NST: 56 NBPDIA NST: 56 (Annotations: Data stored by [facility] on behalf of user) MONITORING Monitor Explained: Monitor Explained; Test Explained; Patient Verbalized Understanding Monitor Explained: Monitor Explained; Test Explained; Patient Verbalized Understanding Time on Monitor: 08/04/2020 10:57 Time on Monitor: 08/04/2020 10:58 Time off Monitor: 08/04/2020 13:00 NST Duration: 123 NST INTERVENTIONS NST Interventions: PO Hydration; For Biophysical Profile NST Interventions: PO Hydration; Reposition Patient Physician Notified NST: N Chen CNM BABY A: [id number] BABY A Movement : Present Contraction Frequency : 0 FHR Baseline : 140 Accelerations : 10X10 Decelerations : None Variability : Moderate 6-25bpm NST Review: Does Not Meet Criteria for Reactive NST NST Results: Non-Reactive NST COMMENTS NST Comments: BPP 8/8 NST REPORT Report Trigger: Send Report
== END 2020-08-04 12:59 | disposition home or self-care (01) ==
LOC: LC 10:43
PROVIDERS: ATTEND Obstetrics & Gynecology
DX: O09.513 Supervision of elderly primigravida, third trimester (principal); Z3A.36 36 weeks gestation of pregnancy
CPT/HCPCS: 59025; 76819

== ENCOUNTER → 2020-08-07 | Outpatient (CLI) | payer SELFPAY ==
--- NOTE | 2020-08-07 15:17 | L&D Progress Notes ---
PROGRESS NOTES Datetime Report Generated by CPN: 08/07/2020 15:16 PROGRESS NOTE Comment: Here from [facility] for NST for AMA, Cat 1 strip, vs normal, no c/o, has appt in 2 weeks at [facility], passed 1 hr reports good FM, reminded to do kick counts, rev S_S to report LAST VAGINAL EXAM-NURSING Nursing Exam Dilitation: 8.0 Nursing Exam Effacement: 80 Nursing Exam Station: 1 Nursing Exam Contractions: none noted, pt denies SIGNATURE SIGNATURE: [id number];[id number] Assignment: Heather Hitchcock MD Signature: with User ID: Isabel : with User ID: Isabel
--- NOTE | 2020-08-07 17:18 | Non Stress Test Report ---
Non Stress Test Datetime Report Generated by CPN: 08/07/2020 17:17 DEMOGRAPHIC Test Number: 2 EGA NST: 36.5 INDICATION Indication for Study (NST) Other: AMA VITAL SIGNS Temperature - NST: 98.4 Pulse - NST: 67 NBPSYS NST: 98 NBPDIA NST: 56 MONITORING Monitor Explained: Monitor Explained; Test Explained Time on Monitor: 08/07/2020 13:40 Time off Monitor: 08/07/2020 15:34 NST Duration: 114 NST INTERVENTIONS NST Interventions: PO Hydration; Reposition Patient Physician Notified NST: J. MOODY CNM BABY A: [id number] BABY A Movement : Present Contraction Frequency : None FHR Baseline : 145 Accelerations : 15X15 Decelerations : None Variability : Moderate 6-25bpm NST Review: Meets Criteria for Reactive NST NST Review and Verified By : VARGHESE StarksC NST Results: Reactive NST REPORT Report Trigger: Send Report
== END ==
LOC: LC 13:22
PROVIDERS: ATTEND Student in an Organized Health Care Education/Training Program
DX: O09.523 Supervision of elderly multigravida, third trimester (principal); Z3A.36 36 weeks gestation of pregnancy
CPT/HCPCS: 59025

== ENCOUNTER 2020-08-21 12:49 | Outpatient (CLI) | payer SELFPAY ==
--- NOTE | 2020-08-21 16:06 | RADIOLOGY REPORT (SQ) ---
EXAM DESCRIPTION: U/S OB LIMITED IMAGES COMPLETED DATE/TIME: 08/21/2020 3:34 pm REASON FOR STUDY: iup 38.5 AMA for MADALYN COMPARISON: None. TECHNIQUE: Limited transabdominal grayscale ultrasound for evaluation of specific requested obstetri daisy parameters. LIMITATIONS: None. FINDINGS: CERVICAL LENGTH: Not imaged. MADALYN: 14.2 cm. Cm. FHR: 133 beats per minute. PRESENTATION: Cephalic. ANATOMY: Not assessed OTHER: Intrauterine gestation of 38 weeks 4 days. IMPRESSION: LIMITED OBSTETRICAL ULTRASOUND WITH MEASURED PARAMETERS DELINEATED ABOVE. Trimester of : Third trimester - 28 weeks to delivery. TECHNICAL DOCUMENTATION: JOB ID: [id number] 2010 [employer]- All Rights Reserved Reading location - IP/workstation name: [email or web address]
== END 2020-08-21 15:43 | disposition home or self-care (01) ==
LOC: LC 12:49
PROVIDERS: ATTEND Obstetrics & Gynecology
DX: O09.523 Supervision of elderly multigravida, third trimester (principal); Z3A.38 38 weeks gestation of pregnancy
CPT/HCPCS: 59025; 76815

== ENCOUNTER 2020-09-03 07:01 | Inpatient (IN) | payer SELFPAY ==
[2020-09-03] MEDS ORDERED: OXYTOCIN 10 UNIT/ML VIAL IM PRN (08:44)
[2020-09-03] MEDS ORDERED: MISOPROSTOL 0.2 MG TABLET PR PRN (08:44)
[2020-09-03] MEDS ORDERED: RINGERS SOLUTION,LACTATED 1,000 ML IV PRN (08:44)
[2020-09-03] MEDS ORDERED: RINGERS SOLUTION,LACTATED 1,000 ML IV ONE (08:44)
[2020-09-03] MEDS ORDERED: OXYTOCIN/0.9 % SODIUM CHLORIDE 30 UNIT/500 ML RTUINJ IV PRN ×2 (08:44→13:29)
[2020-09-03] MEDS ORDERED: NALOXONE HCL INJ/PF 0.4 MG/1 ML SDV IV PRN (08:44)
[2020-09-03] MEDS ORDERED: METHYLERGONOVINE MALEATE INJ/PF 0.2 MG/1 ML AMPULE IV PRN (08:44)
[2020-09-03 09:14] LABS: APPEARANCE,URINE CLOUDY; BILIRUBIN,URINE NEGATIVE (NEGATIVE); COLOR,URINE YELLOW; GLUCOSE, URINE NEGATIVE (NEGATIVE); KETONES,URINE NEGATIVE (NEGATIVE); LEUKOCYTE ESTERASE,URINE MODERATE (NEGATIVE); NITRITE,URINE NEGATIVE (NEGATIVE); PROTEIN,URINE 30 mg/dL (NEGATIVE); URINE SPECIFIC GRAVITY 1.016; UROBILINOGEN,URINE NEGATIVE mg/dL (<2.0)
[2020-09-03 09:31] LABS: URINE AMPHETAMINES SCREEN NEGATIVE; URINE BARBITURATES SCREEN NEGATIVE; URINE BENZODIAZEPINES SCREEN NEGATIVE; URINE COCAINE SCREEN NEGATIVE; URINE MARIJUANA (THC) SCREEN NEGATIVE; URINE METHADONE SCREEN NEGATIVE; URINE PHENCYCLIDINE SCREEN NEGATIVE
[2020-09-03] MEDS ORDERED: LIDOCAINE 1% INJ-PF (10 MG/ML) 30 ML SDV ONE (09:34)
[2020-09-03] MEDS ORDERED: OXYTOCIN 10 UNIT/ML VIAL ONE (09:34)
[2020-09-03] MEDS ORDERED: MISOPROSTOL 0.2 MG TABLET ONE (09:34)
[2020-09-03] MEDS ORDERED: OXYTOCIN/0.9 % SODIUM CHLORIDE 30 UNIT/500 ML RTUINJ ONE (09:34)
[2020-09-03 09:46] LABS: ABSOLUTE EOSINOPHILS # (AUTO) 0.1 10^3/uL (0.0-0.6); ABSOLUTE LYMPHOCYTES (AUTO) 1.8 10^3/uL (0.5-4.7); ABSOLUTE MONOCYTES (AUTO) 0.5 10^3/uL (0.1-1.4); ABSOLUTE NEUT (AUTO) 3.5 10^3/uL (1.7-8.2); BASOPHILS % (AUTO) 0.7 % (0-2); EOSINOPHILS % (AUTO) 0.9 % (0-6); HEMATOCRIT 32.4 % (36.0-47.0); HEMOGLOBIN 11.2 g/dL (12.0-15.5); MEAN CORPUSCULAR HEMOGLOBIN 30.9 pg (27.0-33.4); MEAN CORPUSCULAR HGB CONC 34.6 g/dL (32.0-36.0); MEAN CORPUSCULAR VOLUME 89 fl (80-97); MONOCYTES % (AUTO) 8.5 % (3-13); PLATELET COUNT 260 10^3/uL (150-450); RED BLOOD COUNT 3.63 10^6/uL (3.72-5.28); RED CELL DISTRIBUTION WIDTH 13.5 % (11.5-14.0); SEGMENTED NEUTROPHILS % (AUTO) 58.9 % (42-78); TOTAL CELLS COUNTED % (AUTO) 100 %; WHITE BLOOD COUNT 5.9 10^3/uL (4.0-10.5)
--- NOTE | 2020-09-03 11:08 | Admission Physical ---
Datetime Report Generated by CPN: 09/03/2020 11:08 CURRENT ADMISSION Chief Complaint: Scheduled Induction of Labor Indication for Induction: Post Dates Admit Impression : Term, Intrauterine ; No Active Labor Admit Plan: Admit to Unit; Initiate Labor Induction Protocol Admit Plan- Other: GBS neg AMA Obesity ALLERGIES Medication Allergies: No Medication Allergies: No Known Allergies (09/03/2020) Latex: No Latex Allergies Environmental Allergies: none OBSTETRICAL HISTORY EDC: 08/30/2020 00:00 : 4 Para: 3 Term: 3 : 0 SAB: 0 IAB: 0 Ectopic: 0 Livin Cesareans: 0 VBACs: 0 Multiple Births: 0 Gestational Diabetes: No Rh Sensitization: No Incompetent Cervix: No WALDO: No Infertility: No ART Treatment: No Uterine Anomaly: No IUGR: No Hx Previous C/S: No Macrosomia: No Hx Loss/Stillborn: No PIH: No Hx : No Placenta Previa/Abruption: No Depression/PP Depression: No PTL/PROM: No Current Procedures: Ultrasound; NST Obstetrical History Comments: G1- vaginal, 06/15/2007 G2- vaginal, 05/22/2009 G3- vaginal, 09/19/2018 G4- Current SEE RECORDS Alcohol: No Marijuana : No Cocaine: No Other Illicit Drugs: No Cigarettes: Never Smoker. 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: No Heart Disease: No Hosp/Surgery: Yes Autoimmune Disorder: No Anesthetic Complications: Unknown Kidney Disease: Yes Abnormal Pap Smear: No Neuro/Epilepsy: No Psychiatric Disorders: No Other Medical Diseases: No Hepatitis/Liver Disease: No Significant Family History: No Varicosities/Phlebitis: No Trauma/Violence : No Thyroid Dysfunction: No Medical History Comments: Late to PN, UTI treated this , AMA, obesity child x 3 never had anesthesia INFECTIOUS HISTORY Gonorrhea: No Genital Herpes: No Chlamydia: No Tuberculosis: No Syphilis: No Hepatitis: No HIV/AIDS Exposure: No Rash or Viral Illness: No HPV: No PHYSICAL EXAM General: Normal HEENT: Deferred Neurologic: Normal Thyroid: Deferred Heart: Normal Lungs: Normal Breast: Deferred Back: Deferred Abdomen: Normal Genitourinary Exam: Normal Extremities: Normal DTRs: Deferred Pelvic Type: Adequate Vital Signs: Reviewed VAGINAL EXAM Dilatation: 3 Effacement: 60 Station: -2 MEMBRANES Membranes: Ruptured Amniotic Fluid Color: Clear FETUS A EGA: 40.4 Monitoring: External US FHR- Baseline: 145 Variability: Moderate 6-25bpm Decelerations: None FHR Category: Category I Presentation: Vertex Admit Comment: here for IOL 40.4 AMA favorable cx start pitocin, AROM'd, anticipate does not plan for epidural PLANS FOR LABOR AND DELIVERY Labor and Delivery: None Pain Management: None Feeding Preference: Both Benefit of Breast Feed Discussed: Yes Circumcision: N/A INFORMED CONSENT Assignment: Shona Baker MD Signature: with User ID: Ayden : with User ID: Ayden
[2020-09-03] MEDS ORDERED: DIBUCAINE 1% OINTMENT 28 GM TP PRN (13:29)
[2020-09-03] MEDS ORDERED: DIPH/PERTUSS(ACELL)/TETANUS VAC/PF 0.5 ML SYR (>=10YO) IM PRN (13:29)
[2020-09-03] MEDS ORDERED: MAGNESIUM HYDROXIDE SUSP 30 ML UDCUP PO PRN (13:29)
[2020-09-03] MEDS ORDERED: MEASLES,MUMPS&RUBELLA VACC/PF 0.5 ML VIAL SUBCUT PRN (13:29)
[2020-09-03] MEDS ORDERED: ACETAMINOPHEN WITH CODEINE #3 TABLET PO PRN ×2 (13:29)
[2020-09-03] MEDS ORDERED: VARICELLA VACC/PF (1350 UNIT/0.5 ML) 0.5 ML VIAL SUBCUT PRN (13:29)
[2020-09-03] MEDS ORDERED: ACETAMINOPHEN 325 MG TABLET PO PRN (13:29)
[2020-09-03] MEDS ORDERED: BENZOCAINE/MENTHOL AEROSOL SPRAY 56 ML TOP PRN (13:29)
[2020-09-03] MEDS ORDERED: PSEUDOEPHEDRINE HCL 30 MG TABLET PO PRN (13:29)
[2020-09-03] MEDS ORDERED: MAG HYDROX/AL HYDROX/SIMETH SUSP 30 ML UDCUP PO PRN (13:29)
[2020-09-03] MEDS ORDERED: ZOLPIDEM TARTRATE 5 MG TABLET PO PRN (13:29)
[2020-09-03] MEDS ORDERED: GLYCERIN/WITCH HAZEL LEAF 1 EACH MED..WIPE TP PRN (13:29)
[2020-09-03] MEDS ORDERED: DIPHENHYDRAMINE HCL 25 MG CAPSULE PO PRN (13:29)
[2020-09-03] MEDS ORDERED: ACETAMINOPHEN 650 MG SUPP.RECT PR PRN (13:29)
[2020-09-03] MEDS ORDERED: FAMOTIDINE 20 MG TABLET PO PRN (13:29)
[2020-09-03] MEDS ORDERED: IBUPROFEN 800 MG TABLET ONE (14:37)
[2020-09-03] MEDS: IBUPROFEN 800 MG TABLET PO SCH ×2 (14:50→21:59)
[2020-09-03] MEDS: DOCUSATE SODIUM 100 MG CAPSULE PO SCH (18:38)
[2020-09-03] MEDS: FERROUS SULFATE 325 MG TABLET PO SCH (18:39)
[2020-09-04] MEDS: IBUPROFEN 800 MG TABLET PO SCH ×3 (05:17→21:28)
[2020-09-04 06:56] LABS: HEMATOCRIT 32.1 % (36.0-47.0); HEMOGLOBIN 11.1 g/dL (12.0-15.5); MEAN CORPUSCULAR HEMOGLOBIN 30.5 pg (27.0-33.4); MEAN CORPUSCULAR HGB CONC 34.5 g/dL (32.0-36.0); MEAN CORPUSCULAR VOLUME 89 fl (80-97); PLATELET COUNT 223 10^3/uL (150-450); RED BLOOD COUNT 3.63 10^6/uL (3.72-5.28); RED CELL DISTRIBUTION WIDTH 13.9 % (11.5-14.0); WHITE BLOOD COUNT 7.4 10^3/uL (4.0-10.5)
[2020-09-04] MEDS ORDERED: PRENATAL VITAMIN W DHA CAPSULE PO ONE (09:08)
[2020-09-04] MEDS ORDERED: [UNRECOGNIZED DRUG - REMARK] PO SCH (10:00)
[2020-09-04] MEDS ORDERED: PRENATAL VITAMIN W DHA CAPSULE PO SCH (10:00)
[2020-09-04] MEDS: DOCUSATE SODIUM 100 MG CAPSULE PO SCH ×2 (10:31→18:39)
[2020-09-04] MEDS: FERROUS SULFATE 325 MG TABLET PO SCH ×2 (10:31→18:39)
[2020-09-04] MEDS: SENNOSIDES/DOCUSATE 8.6-50 MG 1 EACH TABLET PO SCH (10:31)
--- NOTE | 2020-09-04 11:57 | PDOC PROGRESS REPORT ---
Subjective-OB Progress Note for:: 09/04/20 Subjective: reports bleeding slowing, pain controlled with current meds. denies needs. Physical Exam (OB) Vital Signs: Temp Pulse Resp BP Pulse Ox 98.0 F 57 L 16 121/62 100 09/04/20 10:00 09/04/20 07:43 09/04/20 07:43 09/04/20 07:43 09/04/20 07:43 Intake & Output 09/03/20 09/04/20 09/05/20 06:59 06:59 06:59 Intake Total 400 Balance 400 Weight 85.7 kg - Maternal Morbidity 59. Maternal Morbidity (serious complications experinced by the mother associated with labor and delivery: None of the above - Abdomen Description: Soft Hernia Present: No Fundal Description: Firm, Midline Describe if Not Midline: off to right. educated pt to void q2-3hrs. last void 1500 Fundal Height: u/u - u/2 - Abdominal Distension: No distension Tenderness: Nontender - Extremities Lower extremities: Rosaura's sign - neg Calf: Normal, Nontender Objective-Diagnostic Laboratory: 09/04/20 06:09 09/04/20 06:09 WBC 7.4 RBC 3.63 L Hgb 11.1 L Hct 32.1 L MCV 89 MCH 30.5 MCHC 34.5 RDW 13.9 Plt Count 223 Assessment and Plan(PN) - Time Spent with Patient Time with patient: Less than 15 minutes Medications reviewed and adjusted accordingly: Yes - Disposition Anticipated Discharge Disposition: Home, Self Care Anticipated Discharge Timeframe: within 24 hours
[2020-09-05] MEDS: IBUPROFEN 800 MG TABLET PO SCH (05:41)
[2020-09-05 07:51] VITALS: BP 129/73
[2020-09-05] MEDS: SENNOSIDES/DOCUSATE 8.6-50 MG 1 EACH TABLET PO SCH (09:12)
[2020-09-05] MEDS: DOCUSATE SODIUM 100 MG CAPSULE PO SCH (09:12)
[2020-09-05] MEDS: FERROUS SULFATE 325 MG TABLET PO SCH (09:12)
--- NOTE | 2020-09-05 09:22 | PDOC PROGRESS REPORT ---
Subjective-OB Progress Note for:: 09/05/20 Subjective: Doing well, ready to go home, holding baby, walking , scant bleeding Physical Exam (OB) Vital Signs: Temp Pulse Resp BP Pulse Ox 98.2 F 60 16 129/73 H 97 09/05/20 08:04 09/05/20 07:30 09/05/20 07:30 09/05/20 07:30 09/05/20 07:30 Intake & Output 09/04/20 09/05/20 09/06/20 06:59 06:59 06:59 Intake Total 900 Balance 900 Weight 85.7 kg - PIH/Pre-Eclampsia Clonus: Negative Headache: Absent Epigastric Pain: No Visual Changes: No - Maternal Morbidity 59. Maternal Morbidity (serious complications experinced by the mother associated with labor and delivery: None of the above - Lochia Lochia Amount: Scant < 10 ml Lochia Color: Rubra/Red - Abdomen Description: Firm Hernia Present: No Fundal Description: Firm Describe if Not Midline: off to right. educated pt to void q2-3hrs. last void 1500 Fundal Height: u/u - u/2 Objective-Diagnostic Laboratory: 09/04/20 06:09 Assessment and Plan(PN) - Assessment and Plan (1) Late care Is this a current diagnosis for this admission?: Yes (2) AMA (advanced maternal age) multigravida 35+ Qualifiers: Trimester: first trimester Qualified Code(s): O09.521 - Supervision of elderly multigravida, first trimester Is this a current diagnosis for this admission?: Yes (3) Vaginal delivery Is this a current diagnosis for this admission?: Yes - Time Spent with Patient Time with patient: Less than 15 minutes Medications reviewed and adjusted accordingly: Yes - Disposition Anticipated Discharge Disposition: Home, Self Care Anticipated Discharge Timeframe: within 24 hours
--- NOTE | 2020-09-05 09:25 | PDOC DISCHARGE SUMMARY ---
Impression - Admit/DC Date/PCP Admission Date/Primary Care Provider: 09/03/20 07:01 KRUNAL KENNEDY MD Discharge Date: 09/05/20 - Discharge Diagnosis (1) Late care Is this a current diagnosis for this admission?: Yes (2) AMA (advanced maternal age) multigravida 35+ Is this a current diagnosis for this admission?: Yes (3) Vaginal delivery Is this a current diagnosis for this admission?: Yes - Additional Information Resuscitation Status: Full Code Discharge Diet: As Tolerated, Regular Discharge Activity: Activity As Tolerated Referrals: KRUNAL KENNEDY MD [Primary Care Provider] - (rtc 4 weeks) Home Medications: No122/Iron/Folic Acid [ Multi Tablet] 1 tab PO DAILY 09/07/18 HPI Gestational Age: 40.4 Reason(s) for Admission: Induction of Labor Procedures: NST, Ultrasound Intrapartum Procedure(s): Spontaneous Vaginal Delivery Hospital Course Hospital Course: routine 59. Maternal Morbidity (serious complications experinced by the mother associated with labor and delivery: None of the above Results Laboratory Results: WBC 7.4 10^3/uL (4.0-10.5) 09/04/20 06:09 RBC 3.63 10^6/uL (3.72-5.28) L 09/04/20 06:09 Hgb 11.1 g/dL (12.0-15.5) L 09/04/20 06:09 Hct 32.1 % (36.0-47.0) L 09/04/20 06:09 MCV 89 fl (80-97) 09/04/20 06:09 MCH 30.5 pg (27.0-33.4) 09/04/20 06:09 MCHC 34.5 g/dL (32.0-36.0) 09/04/20 06:09 RDW 13.9 % (11.5-14.0) 09/04/20 06:09 Plt Count 223 10^3/uL (150-450) 09/04/20 06:09 Lymph % (Auto) 31.0 % (13-45) 09/03/20 09:16 Refugio % (Auto) 8.5 % (3-13) 09/03/20 09:16 Eos % (Auto) 0.9 % (0-6) 09/03/20 09:16 Baso % (Auto) 0.7 % (0-2) 09/03/20 09:16 Absolute Neuts (auto) 3.5 10^3/uL (1.7-8.2) 09/03/20 09:16 Absolute Lymphs (auto) 1.8 10^3/uL (0.5-4.7) 09/03/20 09:16 Absolute Monos (auto) 0.5 10^3/uL (0.1-1.4) 09/03/20 09:16 Absolute Eos (auto) 0.1 10^3/uL (0.0-0.6) 09/03/20 09:16 Absolute Basos (auto) 0.0 10^3/uL (0.0-0.2) 09/03/20 09:16 Seg Neutrophils % 58.9 % (42-78) 09/03/20 09:16 Urine Color YELLOW 09/03/20 08:15 Urine Appearance CLOUDY 09/03/20 08:15 Urine pH 6.0 (5.0-9.0) 09/03/20 08:15 Ur Specific [place] 1.016 09/03/20 08:15 Urine Protein 30 mg/dL (NEGATIVE) H 09/03/20 08:15 Urine Glucose (UA) NEGATIVE mg/dL (NEGATIVE) 09/03/20 08:15 Urine Ketones NEGATIVE mg/dL (NEGATIVE) 09/03/20 08:15 Urine Blood NEGATIVE (NEGATIVE) 09/03/20 08:15 Urine Nitrite NEGATIVE (NEGATIVE) 09/03/20 08:15 Urine Bilirubin NEGATIVE (NEGATIVE) 09/03/20 08:15 Urine Urobilinogen NEGATIVE mg/dL (<2.0) 09/03/20 08:15 Ur Leukocyte Esterase MODERATE (NEGATIVE) H 09/03/20 08:15 Urine Ascorbic Acid NEGATIVE (NEGATIVE) 09/03/20 08:15 Urine Opiates Screen NEGATIVE 09/03/20 08:15 Urine Methadone Screen NEGATIVE 09/03/20 08:15 Ur Barbiturates Screen NEGATIVE 09/03/20 08:15 Ur Phencyclidine Scrn NEGATIVE 09/03/20 08:15 Ur Amphetamines Screen NEGATIVE 09/03/20 08:15 U Benzodiazepines Scrn NEGATIVE 09/03/20 08:15 Urine Cocaine Screen NEGATIVE 09/03/20 08:15 U Marijuana (THC) Screen NEGATIVE 09/03/20 08:15 Blood Type O POSITIVE 09/03/20 09:16 Antibody Screen NEGATIVE 09/03/20 09:16 Plan Health Concerns: routine Plan of Treatment: [facility] home, pp instructions in malt[place], rtc 4 weeks Goals: no complications Time Spent: Less than 30 Minutes
--- NOTE | 2020-09-09 08:52 | Delivery Summary ---
Del Sum A-C Datetime Report Generated by CPN: 09/09/2020 08:52 DELIVERY PERSONNEL DELIVERY PERSONNEL: [id number] Delivery Doctor:: Amanda Joshi CNM Labor and Delivery Nurse:: Chelsey Anne RN Nursery Nurse:: Alayna Damico RN Fishing Line Winding Machine Operator/PUMP STITCHER: Gracie Felder, ORAL SURGEON Additional Personnel: : CATRINA Morgan MATERNAL INFORMATION Delivery Anesthesia: None Medications After Delivery: Pitocin 30 Units in 500ml NS/D5W Delivery QBL: 200 Delivery QBL Comment: 200 Maternal Complications: None Provider Comments: Called to Room, baby . Gloves donned and then assisted with delivery of head, tight nuchal noted posteriorly, unable to reduce. Shoulders delivered, infant rotated and somersaulted through cord. Cord was wrapped around body. Baby vigorous, to mothers abd. Cord clamped and cut per FOB. Cord blood collected, placenta spont intact via loja. No lacerations. Apgars 9,9. Mother and stable. LABOR SUMMARY EDC: 08/30/2020 00:00 No. Babies in Womb: 1 Attempted: No Labor Anesthesia: None LABOR INFORMATION Reason for Induction: Other Reason for Induction- Other: advanced maternal age Onset of Labor: 09/03/2020 10:49 Complete Dilatation: 09/03/2020 13:18 Oxytocin: Induction Group B Beta Strep: Negative Antibiotics # of Doses: 0 Name of Antibiotic Given: n/a Steroids Given: None Reason Steroids Not Administered: Not Applicable MEMBRANES Membranes Rupture Method: Artificial Rupture of Membranes: 09/03/2020 10:50 Length of Rupture (hr): 2.52 Amniotic Fluid Color: Clear Amniotic Fluid Amount: Small Amniotic Fluid Odor: None STAGES OF LABOR Stage 1 hr: 2 Stage 1 min: 29 Stage 2 hr: 0 Stage 2 min: 3 Stage 3 hr: 0 Stage 3 min: 14 Total Time in Labor hr: 2 Total Time in Labor min: 46 VAGINAL DELIVERY Episiotomy: None Laceration #1: None Laceration Repair: Not Applicable Sponge Count Correct: N/A CSECTION DELIVERY Primary Indication: N/A Secondary Indication: N/A BABY A INFORMATION Delivery Date/Time: 09/03/2020 13:21 Method of Delivery: Vaginal Method of Delivery: Vaginal Nurse Controlled Delivery: No Born in Route : No : N/A Forceps: N/A Vacuum Extraction: N/A Shoulder Dystocia : No PRESENTATION/POSITION BABY A Presentation: Cephalic Presentation: Cephalic Presentation: Cephalic Cephalic Presentation: Vertex Vertex Position: Right Occipital Anterior Breech Presentation: N/A PLACENTA INFORMATION BABY A Placenta Delivery Time : 09/03/2020 13:35 Placenta Method of Delivery: Spontaneous Placenta Status: Delivered SCORES BABY A Heart Rate 1 min: >100 bpm Resp Effort 1 min: Good Cry Reflex Irritability 1 min: Cough or Sneeze or Pulls Away Muscle Tone 1 min: Active Motion Color 1 min: Body Zarate, Extremities Blue Resuscitation Effort 1 min: N/A SCORE 1 MIN: 9 Heart Rate 5 min: >100 bpm Resp Effort 5 min: Good Cry Reflex Irritability 5 min: Cough or Sneeze or Pulls Away Muscle Tone 5 min: Active Motion Color 5 min: Body Zarate, Extremities Blue Resuscitation Effort 5 min: Tactile Stimulation SCORE 5 MIN: 9 INFANT INFORMATION BABY A Gestational Age at Delivery: 40.4 Gestational Status: Full Term- 39- 40.6 Weeks Infant Outcome : Liveborn Infant Condition : Stable Infant Sex: Female IDENTIFICATION BABY A Infant Verification Date/Time: 09/03/2020 14:20 ID Band Number: [id number] Mother's Name Verified: Yes Infant RN Verifying : M Omid, RNC Additional Verifying Personnel: A [place], RN WEIGHT/LENGTH BABY A Birthweight (gm): 3610 Weight (lb): 7 Infant Weight (oz): 15 Length (in): 20.00 Length (cm): 50.80 CORD INFORMATION BABY A No. Cord Vessels: 3 Nuchal Cord : Around Neck x1, Tight Cord Blood Taken: Yes-For Eval (Mom's Blood Type - or O+) Suction: None ASSESSMENT BABY A Skin to Skin: Yes SCORES BABY B Heart Rate 1 min: >100 bpm Resp Effort 1 min: Good Cry Reflex Irritability 1 min: Cough or Sneeze or Pulls Away Muscle Tone 1 min: Active Motion Color 1 min: Body Zarate, Extremities Blue Resuscitation Effort 1 min: N/A SCORE 1 MIN: 9 Heart Rate 5 min: >100 bpm Resp Effort 5 min: Good Cry Reflex Irritability 5 min: Cough or Sneeze or Pulls Away Muscle Tone 5 min: Active Motion Color 5 min: Body Zarate, Extremities Blue Resuscitation Effort 5 min: Tactile Stimulation SCORE 5 MIN: 9 CORD INFORMATION BABY B Nuchal Cord : Around Neck x1, Tight Infant Suction : None ASSESSMENT BABY B Skin to Skin: Yes SIGNATURES Assignment: Shona Baker MD Signature: with User ID: [email or web address] : with User ID: [email or web address] : I was personally available for consultation and serving as supervising physician for the MLP. : I was personally available for consultation and serving as supervising physician for the MLP.
== END 2020-09-05 10:31 | disposition home or self-care (01) | DRG 807 ==
LOC: LR 07:01 → 2S 17:36
PROVIDERS: ADMIT Obstetrics & Gynecology; ATTEND Obstetrics & Gynecology
PROC: 10E0XZZ Delivery of Products of Conception, External Approach (ICD-10-PCS; principal; 2020-09-03)
DX: O48.0 Post-term pregnancy (principal); Z37.0 Single live birth; O69.1XX0 Labor and delivery complicated by cord around neck, with compression, not applicable or unspecified; O99.214 Obesity complicating childbirth; E66.9 Obesity, unspecified; Z3A.40 40 weeks gestation of pregnancy
CPT/HCPCS: 36415; 59025; 80307; 81005; 85025; 85027; 86850; 86900; 86901; J2590; J3490